=== PATIENT | female | born 1965 | race Caucasian/White ===

== ENCOUNTER → 2018-12-23 | Outpatient (CLI) | payer BC ==
[~2018-12-23] MED LIST: Advil Pm Liqui1 EACH; LABE100 PO; LOSARTAN-HCTZ1 EAC1 PO; MOTRIN PM CAPL1 EACH; NAPR220; QVAR REDIHALE10.6 G1 INH; Ventolin/Prove6.7 GM INH
[2018-12-24 15:06] LABS: HPV 16 Negative (Negative); HPV 18 Negative (Negative); HPV OTHER HR TYPES Negative (Negative)
== END | disposition home or self-care (01) ==
LOC: LAB 11:41 → LAB SHORT 11:41
PROVIDERS: Obstetrics & Gynecology
DX: Z01.419 Encounter for gynecological examination (general) (routine) without abnormal findings (principal)
CPT/HCPCS: 87624; G0123

== ENCOUNTER 2019-01-14 07:10 | Day surgery (SDC) | payer BC ==
[~2019-01-14] VITALS: Ht 165.1 cm; Wt 90.2 kg
--- NOTE | 2019-01-14 08:26 | NUR ---
01/14/[address] AWARE OF ELEVATED BP IN PREOP.
--- NOTE | 2019-01-14 09:56 | NUR ---
01/14/19 0956 Reagan Valenzuela S PATIENT STATES SHE HAS SOME PAIN/CRAMPING IN HER STOMACH AND PATIENT INSTUCTED TO MOVE AROUND AND PASS GAS AND SHE WOULD FEEL BETTER. PATIENTS ASKED IF SHE WAS READY TO GET DRESSED AND GO HOME AND SHE STATED YES. PATIENT INSTRUCTED TO GIVE DR OMER A CALL IF STOMACH PAIN DOES NOT GET BETER AFTER PASSING GAS.
== END 2019-01-14 09:54 | disposition home or self-care (01) ==
LOC: ORSCSDS 07:10
PROVIDERS: Internal Medicine Gastroenterology
PROC: 0DBE8ZX Excision of Large Intestine, Via Natural or Artificial Opening Endoscopic, Diagnostic (ICD-10-PCS; principal; 2019-01-14 08:30)
PROC: 0DB98ZX Excision of Duodenum, Via Natural or Artificial Opening Endoscopic, Diagnostic (ICD-10-PCS; principal; 2019-01-14 08:30)
PROC: 0DBN8ZX Excision of Sigmoid Colon, Via Natural or Artificial Opening Endoscopic, Diagnostic (ICD-10-PCS; principal; 2019-01-14 08:30)
PROC: 0DB68ZX Excision of Stomach, Via Natural or Artificial Opening Endoscopic, Diagnostic (ICD-10-PCS; principal; 2019-01-14 08:30)
PROC: 0DB58ZX Excision of Esophagus, Via Natural or Artificial Opening Endoscopic, Diagnostic (ICD-10-PCS; principal; 2019-01-14 08:30)
DX: R19.7 Diarrhea, unspecified (principal); K63.5 Polyp of colon; K57.30 Diverticulosis of large intestine without perforation or abscess without bleeding; K64.8 Other hemorrhoids; K64.4 Residual hemorrhoidal skin tags; K29.80 Duodenitis without bleeding; K29.70 Gastritis, unspecified, without bleeding; K21.0 Gastro-esophageal reflux disease with esophagitis; K31.7 Polyp of stomach and duodenum; R11.0 Nausea; I10 Essential (primary) hypertension; J45.909 Unspecified asthma, uncomplicated; M79.7 Fibromyalgia; E78.5 Hyperlipidemia, unspecified; L93.0 Discoid lupus erythematosus; Z79.899 Other long term (current) drug therapy
CPT/HCPCS: 88305; J0330; J0461; J2405; J2704; J7120

== ENCOUNTER → 2019-01-29 | Outpatient (CLI) | payer BC | END | disposition home or self-care (01) | LOC: LAB SHORT 10:53 → PLD 10:53 | DX: L98.8 Other specified disorders of the skin and subcutaneous tissue (principal) | CPT/HCPCS: 88305 ==